=== PATIENT | female | born 2000 | race Caucasian/White ===

== ENCOUNTER → 2021-04-10 14:08 | Outpatient (BNVA) | payer OTHER, SELFPAY | PROVIDERS: Family Provider Pediatrics Adolescent Medicine; PCP Nurse Practitioner Family; Visit Provider Nurse Practitioner Family | DX: Z20.822 Contact with and (suspected) exposure to COVID-19 (principal); J98.8 Other specified respiratory disorders | CPT/HCPCS: 87635 ==

== ENCOUNTER 2021-07-28 08:05 | Outpatient (CLI) | payer OTHER, SELFPAY ==
[2021-07-28 08:05] VITALS: BP 112/77; PULSE 65; RESP 16; TEMP 36.7; O2SAT 95; BMI 31.7
[2021-07-28 08:55] VITALS: BP 113/75; PULSE 69; RESP 16; TEMP 36.7; O2SAT 99
== END 2021-07-28 09:55 | disposition home or self-care (01) ==
LOC: OPS 08:07
PROVIDERS: PCP Nurse Practitioner Family; Visit Provider Nurse Practitioner
DX: U07.1 COVID-19 (principal)
CPT/HCPCS: 96365

== ENCOUNTER → 2021-08-16 09:12 | Outpatient (BNVA) | payer OTHER, SELFPAY | PROVIDERS: PCP Nurse Practitioner Family; Visit Provider Obstetrics & Gynecology | DX: Z30.9 Encounter for contraceptive management, unspecified (principal) | CPT/HCPCS: 81025 ==

== ENCOUNTER → 2021-08-17 11:30 | Outpatient (BNVA) | payer OTHER, SELFPAY | PROVIDERS: PCP Nurse Practitioner Family; Visit Provider Nurse Practitioner | DX: Z12.4 Encounter for screening for malignant neoplasm of cervix (principal); Z11.3 Encounter for screening for infections with a predominantly sexual mode of transmission | CPT/HCPCS: 87491; 87591; 88175 ==

== ENCOUNTER 2021-12-26 10:41 | Outpatient (CLI) | payer OTHER, SELFPAY ==
--- NOTE | 2021-12-26 11:45 | US_ITS ---
WS: [id number] TRANSVAGINAL PELVIC ULTRASOUND HISTORY: N93.9 - Abnormal uterine and vaginal bleeding, unspecified COMPARISON: None available. Uterus: 8.0 cm x 4.5 cm x 3.2 cm. Normal size anteverted uterus. Hypoechoic mass in the posterior cata metrium measures 1.6 x 1.1 x 1.0 cm consistent with a fibroid. Endometrium: 0.2 cm. Normal thin endometrium. Right ovary: 3.6 cm x 3.1 cm x 1.6 cm. Normal size and vascularity, no cystic or solid masses. Small RIGHT ovarian follicle. Left ovary: 2.9 cm x 1.4 cm x 3.1 cm. Normal size and vascularity, no cystic or solid masses. Small f ollicle. No free fluid. US/US transvaginal [id number] IMPRESSION: 1. Small uterine fibroid with a maximum diameter 1.6 cm. 2. Normal ovaries. 3. Normal endometrium.
== END 2021-12-26 10:42 | disposition home or self-care (01) ==
PROVIDERS: PCP Nurse Practitioner Family; Visit Provider Obstetrics & Gynecology
DX: D25.9 Leiomyoma of uterus, unspecified (principal); N93.9 Abnormal uterine and vaginal bleeding, unspecified
CPT/HCPCS: 76830

== ENCOUNTER 2022-02-09 17:00 | Outpatient (CLI) | payer OTHER, SELFPAY | END 2022-02-09 17:01 | disposition home or self-care (01) | PROVIDERS: PCP Nurse Practitioner Family; Visit Provider Registered Nurse Neonatal Intensive Care | DX: Z01.89 Encounter for other specified special examinations (principal); S90.862A Insect bite (nonvenomous), left foot, initial encounter; W57.XXXA Bitten or stung by nonvenomous insect and other nonvenomous arthropods, initial encounter | CPT/HCPCS: 86618; 86666; 86757 ==

== ENCOUNTER → 2023-03-28 16:01 | Outpatient (BNVA) | payer OTHER, SELFPAY | PROVIDERS: PCP Nurse Practitioner Family; Visit Provider Nurse Practitioner | DX: Z12.4 Encounter for screening for malignant neoplasm of cervix (principal) | CPT/HCPCS: 88175 ==

== ENCOUNTER → 2023-06-25 08:31 | Outpatient (BNVA) | payer OTHER, SELFPAY | PROVIDERS: PCP Nurse Practitioner Family; Visit Provider Obstetrics & Gynecology | DX: Z01.818 Encounter for other preprocedural examination (principal); R87.610 Atypical squamous cells of undetermined significance on cytologic smear of cervix (ASC-US) | CPT/HCPCS: 81025; 88305 ==